=== PATIENT | male | born 1955 | race Caucasian/White ===

== ENCOUNTER 2021-03-24 16:26 | Inpatient (IN) | payer MEDICARE, MEDICAID ==
[~2021-03-24] VITALS: Ht 172.7 cm; Wt 112.5 kg
[2021-03-24] MEDS ORDERED: METFORMIN (16:32)
[2021-03-24] MEDS ORDERED: PIPERACILLIN/TAZ 3.375G PREMIX 50 ML IV ONE (17:15)
[2021-03-24] MEDS ORDERED: DEXAMETHASONE 4MG/ML 1ML VIAL IV ONE (17:15)
[2021-03-24] MEDS ORDERED: VANCOMYCIN 1G PREMIX 200 ML IV ONE (17:15)
[2021-03-24 17:40] LABS: BASOPHILS % 0.2 % (0.0-2.0); EOSINOPHILS % 0.1 % (0.0-5.0); HEMATOCRIT. 47.6 % (42.0-52.0); HEMOGLOBIN. 15.9 g/dL (14.0-18.0); LYMPHOCYTES % 21.2 % (20.0-50.0); MEAN CORPUSCULAR HEMOGLOBIN 31.6 pg (28.0-32.0); MEAN CORPUSCULAR VOLUME 94.8 fL (80.0-94.0); MEAN PLATELET VOLUME 9.2 fl (7.4-10.4); MONOCYTES % 12.8 % (2.0-8.0); NEUTROPHILS % 65.7 % (40.0-76.0); PLATELET 236 x1000/uL (130-400); RED BLOOD CELL COUNT 5.03 mill/uL (4.7-6.1); RED CELL DISTRIBUTION WIDTH 13.7 % (11.6-14.6)
[2021-03-24 17:46] LABS: CHLORIDE 103 mEq/L (98-107)
[2021-03-24 17:48] LABS: INR 1.1; PROTHROMBIN TIME 11.9 sec (9.6-11.0)
[2021-03-24 18:54] LABS: CLARITY URINE CLEAR (CLEAR); COLOR URINE DK YELLOW (YELLOW); KETONES URINE 1+ (NEGATIVE); LEUKOCYTE ESTERASE URINE NEGATIVE (NEGATIVE); NITRITE URINE NEGATIVE (NEGATIVE); OCCULT BLOOD URINE NEGATIVE (NEGATIVE); PROTEIN URINE 1+ (NEGATIVE); SPECIFIC GRAVITY URINE 1.025 (1.005-1.030)
[2021-03-24] MEDS ORDERED: ASPIRIN 81MG TABLET PO NR (19:15)
[2021-03-24] MEDS ORDERED: ACETAMINOPHEN 325MG TABLET PO PRN ×2 (21:30)
[2021-03-24] MEDS ORDERED: CLONIDINE 0.1MG TABLET PO PRN (21:30)
[2021-03-24] MEDS ORDERED: DEXTROSE 50% WATER 50ML SYRINGE IV PRN (21:30)
[2021-03-24] MEDS ORDERED: KETOROLAC 15MG/ML VIAL IV PRN (21:30)
[2021-03-24] MEDS ORDERED: ONDANSETRON HCL 4MG/2ML INJ IV PRN (21:30)
[2021-03-24] MEDS ORDERED: MAGNESIUM/ALUMINUM HYDROXIDE/SIMETHICONE 30ML UDC PO PRN (21:30)
[2021-03-24] MEDS ORDERED: GUAIFENESIN 200MG/10ML SUGAR FREE UDC PO PRN (21:30)
[2021-03-24] MEDS ORDERED: ENOXAPARIN 40MG/0.4ML SYR SUBCUT SCH (21:30)
[2021-03-24] MEDS ORDERED: DOCUSATE SODIUM 100MG CAPSULE PO PRN (21:30)
[2021-03-24] MEDS ORDERED: ZOLPIDEM TARTRATE 5MG TABLET PO PRN (21:30)
[2021-03-24] MEDS ORDERED: NITROGLYCERIN 0.4MG TABLET SL SL PRN (21:30)
[2021-03-24] MEDS ORDERED: AZITHROMYCIN 500MG/250ML 250 ML IV NR (21:45)
[2021-03-24] MEDS: CEFTRIAXONE 1 G PREMIX 50 ML IV SCH (22:08)
[2021-03-24] MEDS: AZITHROMYCIN 500 MG in DEXT 5% WATER 250 ML IV SCH ×2 (22:19→22:26)
[2021-03-24] MEDS: ENOXAPARIN 30MG/0.3ML SYR SUBCUT SCH (22:19)
[2021-03-24 22:24] LABS: FOLIC ACID (FOLATE) SERUM 16.4 ng/mL (>5.38)
[2021-03-24 22:37] LABS: CREATINE KINASE MB FRACTION 1.9 ng/mL (0.5-3.6)
[2021-03-24 23:47] LABS: ETHANOL BLOOD < 10 mg/dL
[2021-03-24 23:49] LABS: TOTAL IRON BINDING CAPACITY 267 ug/dL (250-450)
[2021-03-25] MEDS: DILTIAZEM HCL 60MG TABLET PO SCH ×4 (00:55→18:40)
[2021-03-25] MEDS: BLOOD SUGAR DIAGNOSTIC STRIP TEST SCH ×4 (06:48→21:03)
[2021-03-25 07:01] LABS: CHLORIDE 105 mEq/L (98-107)
[2021-03-25 07:07] LABS: PHOSPHORUS 2.7 mg/dL (2.5-4.9)
[2021-03-25 07:10] LABS: CREATINE KINASE 332 IU/L (39-308)
[2021-03-25 07:14] LABS: CREATINE KINASE MB FRACTION 2.1 ng/mL (0.5-3.6)
[2021-03-25 07:22] LABS: BASOPHILS % 0.2 % (0.0-2.0); HEMATOCRIT. 45.3 % (42.0-52.0); HEMOGLOBIN. 15.8 g/dL (14.0-18.0); LYMPHOCYTES % 17.7 % (20.0-50.0); MEAN CORPUSCULAR VOLUME 94.2 fL (80.0-94.0); MEAN PLATELET VOLUME 9.6 fl (7.4-10.4); MONOCYTES % 10.3 % (2.0-8.0); NEUTROPHILS % 71.8 % (40.0-76.0); PLATELET 247 x1000/uL (130-400); RED CELL DISTRIBUTION WIDTH 13.7 % (11.6-14.6)
[2021-03-25] MEDS ORDERED: DEXAMETHASONE 6MG TABLET PO SCH (09:00)
[2021-03-25] MEDS: ASPIRIN 325MG EC TABLET PO SCH (10:45)
[2021-03-25] MEDS: ZINC SULFATE 220 MG ( 50 ) CAPSULE PO SCH (10:45)
[2021-03-25] MEDS: ENOXAPARIN 30MG/0.3ML SYR SUBCUT SCH ×2 (10:45→20:52)
[2021-03-25] MEDS: FAMOTIDINE 20MG TABLET PO SCH ×2 (10:45→20:51)
[2021-03-25] MEDS: ASCORBIC ACID 500 MG TABLET PO SCH ×2 (10:45→20:51)
[2021-03-25] MEDS: INSULIN LISPRO 100 UNITS/ML SUBCUT SCH ×3 (11:26→21:12)
[2021-03-25] MEDS: DEXAMETHASONE 4MG/ML 1ML VIAL IV SCH (11:40)
[2021-03-25] MEDS: CHOLECALCIFEROL (D3) 1000 UNIT TABLET PO SCH (11:44)
[2021-03-25] MEDS: ALBUTEROL 6.7GM HFA INHALER ORI SCH (15:28)
[2021-03-25] MEDS: CEFTRIAXONE 1 G PREMIX 50 ML IV SCH (21:59)
[2021-03-25] MEDS ORDERED: AZITHROMYCIN 500MG/250ML 250 ML IV NR (22:45)
[2021-03-26 00:26] VITALS: BP 122/62
[2021-03-26 00:34] VITALS: BP 122/62
[2021-03-26] MEDS: DILTIAZEM HCL 60MG TABLET PO SCH ×4 (00:46→18:48)
[2021-03-26] MEDS: ALBUTEROL 6.7GM HFA INHALER ORI SCH ×4 (02:20→20:55)
[2021-03-26 04:00] VITALS: BP 123/65
[2021-03-26] MEDS ORDERED: CRES10 MT (05:24)
[2021-03-26] MEDS ORDERED: METF-415 PO (05:24)
[2021-03-26] MEDS: BLOOD SUGAR DIAGNOSTIC STRIP TEST SCH ×4 (07:23→20:54)
[2021-03-26 08:00] VITALS: BP 106/65
[2021-03-26 08:06] LABS: *AMPHETAMINES SCREEN URINE NEGATIVE (NEGATIVE); *BARBITURATES SCREEN URINE NEGATIVE (NEGATIVE); *BENZODIAZEPINES SCREEN URINE NEGATIVE (NEGATIVE); *COCAINE SCREEN URINE NEGATIVE (NEGATIVE)
[2021-03-26 08:07] LABS: CANNABINOID URINE SCREEN NEGATIVE (NEGATIVE); METHADONE URINE SCREEN NEGATIVE (NEGATIVE); OPIATES URINE SCREEN NEGATIVE (NEGATIVE); PHENCYCLIDINE URINE SCREEN NEGATIVE (NEGATIVE)
[2021-03-26] MEDS: DEXAMETHASONE 4MG/ML 1ML VIAL IV SCH (08:28)
[2021-03-26] MEDS: ZINC SULFATE 220 MG ( 50 ) CAPSULE PO SCH (08:28)
[2021-03-26] MEDS: ASPIRIN 325MG EC TABLET PO SCH (08:29)
[2021-03-26] MEDS: ALBUTEROL 6.7GM HFA INHALER ORI PRN (08:29)
[2021-03-26] MEDS: FAMOTIDINE 20MG TABLET PO SCH ×2 (08:29→20:54)
[2021-03-26] MEDS: ENOXAPARIN 30MG/0.3ML SYR SUBCUT SCH ×2 (08:29→20:54)
[2021-03-26] MEDS: CHOLECALCIFEROL (D3) 1000 UNIT TABLET PO SCH (08:29)
[2021-03-26] MEDS: ASCORBIC ACID 500 MG TABLET PO SCH ×2 (08:29→20:54)
[2021-03-26] MEDS: INSULIN LISPRO 100 UNITS/ML SUBCUT SCH ×4 (08:31→20:54)
[2021-03-26 12:00] VITALS: BP 121/72
[2021-03-26 20:00] VITALS: BP 130/77
[2021-03-26] MEDS: CEFTRIAXONE 1,000 MG in DEXTROSE 5% WATER 50 ML IV SCH (20:53)
[2021-03-26] MEDS: AZITHROMYCIN 500MG in DEXTROSE 5% WATER 250ML IV SCH (22:05)
[2021-03-27] VITALS: BP 111/60
[2021-03-27] MEDS: DILTIAZEM HCL 60MG TABLET PO SCH ×5 (00:22→23:57)
[2021-03-27] MEDS: ALBUTEROL 6.7GM HFA INHALER ORI SCH ×4 (03:00→20:54)
[2021-03-27 04:00] VITALS: BP 115/63
[2021-03-27] MEDS: BLOOD SUGAR DIAGNOSTIC STRIP TEST SCH ×4 (07:25→20:54)
[2021-03-27 08:00] VITALS: BP 116/65
[2021-03-27] MEDS: ASCORBIC ACID 500 MG TABLET PO SCH ×2 (09:33→20:54)
[2021-03-27] MEDS: ENOXAPARIN 30MG/0.3ML SYR SUBCUT SCH ×2 (09:33→20:53)
[2021-03-27] MEDS: ASPIRIN 325MG EC TABLET PO SCH (09:33)
[2021-03-27] MEDS: ZINC SULFATE 220 MG ( 50 ) CAPSULE PO SCH (09:34)
[2021-03-27] MEDS: CHOLECALCIFEROL (D3) 1000 UNIT TABLET PO SCH (09:34)
[2021-03-27] MEDS: FAMOTIDINE 20MG TABLET PO SCH ×2 (09:34→20:54)
[2021-03-27] MEDS: DEXAMETHASONE 4MG/ML 1ML VIAL IV SCH (09:34)
[2021-03-27] MEDS: INSULIN LISPRO 100 UNITS/ML SUBCUT SCH ×4 (09:36→20:53)
[2021-03-27 12:00] VITALS: BP 127/78
[2021-03-27] MEDS: ALBUTEROL 6.7GM HFA INHALER ORI PRN (14:02)
[2021-03-27 20:00] VITALS: BP 133/82
[2021-03-27] MEDS: CEFTRIAXONE 1,000 MG in DEXTROSE 5% WATER 50 ML IV SCH (20:06)
[2021-03-27] MEDS: GUAIFENESIN-DM 200MG-20MG/10ML UDC PO PRN (20:54)
[2021-03-27] MEDS: AZITHROMYCIN 500MG in DEXTROSE 5% WATER 250ML IV SCH (21:27)
[2021-03-28] VITALS: BP 141/80
[2021-03-28] MEDS: ALBUTEROL 6.7GM HFA INHALER ORI SCH ×4 (03:00→21:16)
[2021-03-28 04:00] VITALS: BP 143/78
[2021-03-28] MEDS: DILTIAZEM HCL 60MG TABLET PO SCH ×3 (05:41→17:59)
[2021-03-28] MEDS: BLOOD SUGAR DIAGNOSTIC STRIP TEST SCH ×4 (07:40→20:28)
[2021-03-28 08:00] VITALS: BP_SYST 112; BP_SYST 120; BP_DIAS 67; BP_DIAS 72
[2021-03-28] MEDS: CHOLECALCIFEROL (D3) 1000 UNIT TABLET PO SCH (09:00)
[2021-03-28] MEDS: DEXAMETHASONE 4MG/ML 1ML VIAL IV SCH (09:00)
[2021-03-28] MEDS: FAMOTIDINE 20MG TABLET PO SCH ×2 (09:00→20:27)
[2021-03-28] MEDS: ZINC SULFATE 220 MG ( 50 ) CAPSULE PO SCH (09:00)
[2021-03-28] MEDS: ASCORBIC ACID 500 MG TABLET PO SCH ×2 (09:00→20:27)
[2021-03-28] MEDS: ENOXAPARIN 30MG/0.3ML SYR SUBCUT SCH ×2 (09:00→20:28)
[2021-03-28] MEDS: ASPIRIN 325MG EC TABLET PO SCH (09:01)
[2021-03-28] MEDS: GUAIFENESIN-DM 200MG-20MG/10ML UDC PO PRN ×2 (09:01→20:27)
[2021-03-28] MEDS: INSULIN LISPRO 100 UNITS/ML SUBCUT SCH ×4 (09:02→20:28)
[2021-03-28 12:00] VITALS: BP 120/67
[2021-03-28 16:00] VITALS: BP 118/75
[2021-03-28 20:00] VITALS: BP 115/72
[2021-03-28] MEDS: CEFTRIAXONE 1,000 MG in DEXTROSE 5% WATER 50 ML IV SCH (20:14)
[2021-03-28] MEDS: AZITHROMYCIN 500MG in DEXTROSE 5% WATER 250ML IV SCH (21:17)
[2021-03-29] VITALS: BP 108/73
[2021-03-29] MEDS: ALBUTEROL 6.7GM HFA INHALER ORI SCH ×4 (03:00→20:56)
[2021-03-29 04:00] VITALS: BP 114/74
[2021-03-29] MEDS: DILTIAZEM HCL 60MG TABLET PO SCH ×5 (06:00→23:59)
[2021-03-29] MEDS: BLOOD SUGAR DIAGNOSTIC STRIP TEST SCH ×4 (06:50→20:58)
[2021-03-29] MEDS: INSULIN LISPRO 100 UNITS/ML SUBCUT SCH ×4 (06:50→20:58)
[2021-03-29 08:00] VITALS: BP 142/98
[2021-03-29] MEDS: GUAIFENESIN-DM 200MG-20MG/10ML UDC PO PRN ×2 (08:39→20:56)
[2021-03-29] MEDS: CHOLECALCIFEROL (D3) 1000 UNIT TABLET PO SCH (08:40)
[2021-03-29] MEDS: FAMOTIDINE 20MG TABLET PO SCH ×2 (08:40→20:56)
[2021-03-29] MEDS: ENOXAPARIN 30MG/0.3ML SYR SUBCUT SCH ×2 (08:40→20:57)
[2021-03-29] MEDS: ASCORBIC ACID 500 MG TABLET PO SCH ×2 (08:40→20:56)
[2021-03-29] MEDS: ASPIRIN 325MG EC TABLET PO SCH (08:40)
[2021-03-29] MEDS: ZINC SULFATE 220 MG ( 50 ) CAPSULE PO SCH (08:40)
[2021-03-29] MEDS: DEXAMETHASONE 4MG/ML 1ML VIAL IV SCH (08:42)
[2021-03-29 12:00] VITALS: BP 139/88
[2021-03-29 16:00] VITALS: BP 130/86
[2021-03-29 20:00] VITALS: BP 108/81
[2021-03-30] VITALS: BP 109/84
[2021-03-30] MEDS: ALBUTEROL 6.7GM HFA INHALER ORI SCH ×4 (03:00→20:31)
[2021-03-30 04:00] VITALS: BP 103/63
[2021-03-30] MEDS: DILTIAZEM HCL 60MG TABLET PO SCH ×3 (05:55→17:39)
[2021-03-30] MEDS: BLOOD SUGAR DIAGNOSTIC STRIP TEST SCH ×4 (07:40→20:32)
[2021-03-30 08:00] VITALS: BP 131/87
[2021-03-30] MEDS: ASPIRIN 325MG EC TABLET PO SCH (08:51)
[2021-03-30] MEDS: ASCORBIC ACID 500 MG TABLET PO SCH ×2 (08:51→20:32)
[2021-03-30] MEDS: GUAIFENESIN-DM 200MG-20MG/10ML UDC PO PRN ×3 (08:51→17:39)
[2021-03-30] MEDS: ZINC SULFATE 220 MG ( 50 ) CAPSULE PO SCH (08:51)
[2021-03-30] MEDS: CHOLECALCIFEROL (D3) 1000 UNIT TABLET PO SCH (08:52)
[2021-03-30] MEDS: DEXAMETHASONE 4MG/ML 1ML VIAL IV SCH (08:52)
[2021-03-30] MEDS: FAMOTIDINE 20MG TABLET PO SCH ×2 (08:52→20:32)
[2021-03-30] MEDS: ENOXAPARIN 30MG/0.3ML SYR SUBCUT SCH ×2 (08:53→20:32)
[2021-03-30] MEDS: INSULIN LISPRO 100 UNITS/ML SUBCUT SCH ×4 (08:54→20:32)
[2021-03-30 12:00] VITALS: BP 120/85
[2021-03-30 16:00] VITALS: BP 133/81
[2021-03-30 20:00] VITALS: BP 113/45
[2021-03-30] MEDS: INSULIN GLARGINE UD 100 UNITS/ML SYR SUBCUT SCH (21:27)
[2021-03-31] VITALS: BP 106/55
[2021-03-31] MEDS: ALBUTEROL 6.7GM HFA INHALER ORI SCH ×4 (03:00→20:14)
[2021-03-31 04:00] VITALS: BP 111/61
[2021-03-31] MEDS: DILTIAZEM HCL 60MG TABLET PO SCH ×5 (05:37→23:09)
[2021-03-31] MEDS: BLOOD SUGAR DIAGNOSTIC STRIP TEST SCH ×4 (07:40→20:14)
[2021-03-31 08:00] VITALS: BP 134/87
[2021-03-31] MEDS: FAMOTIDINE 20MG TABLET PO SCH ×2 (09:28→20:13)
[2021-03-31] MEDS: ZINC SULFATE 220 MG ( 50 ) CAPSULE PO SCH (09:28)
[2021-03-31] MEDS: ASCORBIC ACID 500 MG TABLET PO SCH ×2 (09:28→20:13)
[2021-03-31] MEDS: CHOLECALCIFEROL (D3) 1000 UNIT TABLET PO SCH (09:29)
[2021-03-31] MEDS: ENOXAPARIN 30MG/0.3ML SYR SUBCUT SCH ×2 (09:30→20:13)
[2021-03-31] MEDS: INSULIN LISPRO 100 UNITS/ML SUBCUT SCH ×4 (09:31→20:14)
[2021-03-31] MEDS: ALBUTEROL 6.7GM HFA INHALER ORI PRN ×2 (09:32→17:53)
[2021-03-31] MEDS: ASPIRIN 325MG EC TABLET PO SCH (09:35)
[2021-03-31] MEDS: DEXAMETHASONE 4MG/ML 1ML VIAL IV SCH (10:24)
[2021-03-31 12:00] VITALS: BP_SYST 116; BP_SYST 124; BP_DIAS 69; BP_DIAS 72
[2021-03-31 16:00] VITALS: BP 130/80
[2021-03-31 20:00] VITALS: BP 126/88
[2021-03-31] MEDS: INSULIN GLARGINE UD 100 UNITS/ML SYR SUBCUT SCH (23:07)
[2021-04-01] VITALS: BP 132/84
[2021-04-01] MEDS: ALBUTEROL 6.7GM HFA INHALER ORI SCH ×3 (03:24→21:07)
[2021-04-01 04:00] VITALS: BP 145/88
[2021-04-01] MEDS: DILTIAZEM HCL 60MG TABLET PO SCH ×4 (05:51→23:50)
[2021-04-01] MEDS: BLOOD SUGAR DIAGNOSTIC STRIP TEST SCH ×4 (07:45→21:11)
[2021-04-01] MEDS: FAMOTIDINE 20MG TABLET PO SCH ×2 (09:13→21:08)
[2021-04-01] MEDS: CHOLECALCIFEROL (D3) 1000 UNIT TABLET PO SCH (09:13)
[2021-04-01] MEDS: DEXAMETHASONE 4MG/ML 1ML VIAL IV SCH (09:13)
[2021-04-01] MEDS: ASCORBIC ACID 500 MG TABLET PO SCH ×2 (09:13→21:08)
[2021-04-01] MEDS: ASPIRIN 325MG EC TABLET PO SCH (09:14)
[2021-04-01] MEDS: ENOXAPARIN 30MG/0.3ML SYR SUBCUT SCH ×2 (09:14→21:08)
[2021-04-01] MEDS: ZINC SULFATE 220 MG ( 50 ) CAPSULE PO SCH (09:14)
[2021-04-01] MEDS: INSULIN LISPRO 100 UNITS/ML SUBCUT SCH ×5 (09:15→21:11)
[2021-04-01 12:00] VITALS: BP 122/68
[2021-04-01 13:20] LABS: BG BASE EXCESS 3.5 mmol/L (-2.0-2.0); BG CARBOXYHEMOGLOBIN 0.5 % (0.5-1.5); BG DEOXYHEMOGLOBIN 11.3 % (0.0-5.0); BG FRACTION INSPIRED OXYGEN 21; BG HCO3 ACT 27.4 mmol/L (22.0-26.0); BG METHEMOGLOBIN 0.2 % (0.0-1.5); BG OXYGEN SATURATION 88.6 % (92.0-98.5); BG PCO2 38.9 mmHg (35.0-45.0); BG PH 7.465 (7.350-7.450); BG PO2 53.3 mmHg (75.0-100.0); BG SAMPLE SITE LEFT RADIAL; BG TOTAL HEMOGLOBIN 17.6 g/dL (12.0-18.0); BG VENT MODE ROOM AIR
[2021-04-01 16:00] VITALS: BP 128/64
[2021-04-01] MEDS: ALBUTEROL 6.7GM HFA INHALER ORI PRN (19:07)
[2021-04-01 20:00] VITALS: BP 129/73
[2021-04-01] MEDS: INSULIN GLARGINE UD 100 UNITS/ML SYR SUBCUT SCH (22:15)
[2021-04-01 23:58] VITALS: BP 123/77
[2021-04-02] MEDS: ALBUTEROL 6.7GM HFA INHALER ORI SCH ×2 (03:00→09:02)
[2021-04-02 04:00] VITALS: BP 116/79
[2021-04-02] MEDS: DILTIAZEM HCL 60MG TABLET PO SCH ×3 (06:00→17:58)
[2021-04-02] MEDS: BLOOD SUGAR DIAGNOSTIC STRIP TEST SCH ×4 (06:20→20:45)
[2021-04-02] MEDS: INSULIN LISPRO 100 UNITS/ML SUBCUT SCH ×7 (06:22→21:36)
[2021-04-02 08:00] VITALS: BP 139/90
[2021-04-02] MEDS: ZINC SULFATE 220 MG ( 50 ) CAPSULE PO SCH (09:01)
[2021-04-02] MEDS: ASPIRIN 325MG EC TABLET PO SCH (09:01)
[2021-04-02] MEDS: ASCORBIC ACID 500 MG TABLET PO SCH ×2 (09:01→21:35)
[2021-04-02] MEDS: CHOLECALCIFEROL (D3) 1000 UNIT TABLET PO SCH (09:01)
[2021-04-02] MEDS: DEXAMETHASONE 4MG/ML 1ML VIAL IV SCH (09:01)
[2021-04-02] MEDS: FAMOTIDINE 20MG TABLET PO SCH ×2 (09:01→21:35)
[2021-04-02] MEDS: ENOXAPARIN 30MG/0.3ML SYR SUBCUT SCH ×2 (09:01→21:35)
[2021-04-02] MEDS: ALBUTEROL 6.7GM HFA INHALER ORI PRN (09:02)
[2021-04-02 12:00] VITALS: BP 128/64
[2021-04-02 16:00] VITALS: BP 126/77
[2021-04-02 20:00] VITALS: BP 126/86
[2021-04-02] MEDS: INSULIN GLARGINE UD 100 UNITS/ML SYR SUBCUT SCH (22:28)
[2021-04-03] VITALS: BP 118/74
[2021-04-03] MEDS: ALBUTEROL 6.7GM HFA INHALER ORI SCH ×2 (03:00→22:10)
[2021-04-03 04:00] VITALS: BP 112/62
[2021-04-03] MEDS: DILTIAZEM HCL 60MG TABLET PO SCH ×4 (05:01→17:28)
[2021-04-03] MEDS: BLOOD SUGAR DIAGNOSTIC STRIP TEST SCH ×4 (06:12→21:45)
[2021-04-03] MEDS: INSULIN LISPRO 100 UNITS/ML SUBCUT SCH ×7 (06:20→22:08)
[2021-04-03 07:53] LABS: BASOPHILS % 0.2 % (0.0-2.0); HEMATOCRIT. 49.1 % (42.0-52.0); HEMOGLOBIN. 16.5 g/dL (14.0-18.0); MEAN CORPUSCULAR HEMOGLOBIN 32.3 pg (28.0-32.0); MEAN CORPUSCULAR VOLUME 95.8 fL (80.0-94.0); MEAN PLATELET VOLUME 9.9 fl (7.4-10.4); MONOCYTES % 7.7 % (2.0-8.0); NEUTROPHILS % 80.1 % (40.0-76.0); PLATELET 342 x1000/uL (130-400); RED BLOOD CELL COUNT 5.12 mill/uL (4.7-6.1); RED CELL DISTRIBUTION WIDTH 13.5 % (11.6-14.6)
[2021-04-03 08:00] VITALS: BP 148/97
[2021-04-03 08:05] LABS: CHLORIDE 101 mEq/L (98-107)
[2021-04-03] MEDS: ENOXAPARIN 30MG/0.3ML SYR SUBCUT SCH ×2 (08:50→21:48)
[2021-04-03] MEDS: ASPIRIN 325MG EC TABLET PO SCH (08:51)
[2021-04-03] MEDS: ZINC SULFATE 220 MG ( 50 ) CAPSULE PO SCH (08:51)
[2021-04-03] MEDS: ASCORBIC ACID 500 MG TABLET PO SCH ×2 (08:51→21:48)
[2021-04-03] MEDS: CHOLECALCIFEROL (D3) 1000 UNIT TABLET PO SCH (08:51)
[2021-04-03] MEDS: DEXAMETHASONE 4MG/ML 1ML VIAL IV SCH (08:52)
[2021-04-03] MEDS: FAMOTIDINE 20MG TABLET PO SCH ×2 (08:52→21:48)
[2021-04-03 12:00] VITALS: BP 128/84
[2021-04-03 16:15] VITALS: BP 115/72
[2021-04-03 20:00] VITALS: BP 105/73
[2021-04-03] MEDS: INSULIN GLARGINE UD 100 UNITS/ML SYR SUBCUT SCH (22:08)
[2021-04-04] VITALS: BP 115/67
[2021-04-04 04:00] VITALS: BP 107/61
[2021-04-04] MEDS: BLOOD SUGAR DIAGNOSTIC STRIP TEST SCH ×4 (06:18→21:00)
[2021-04-04] MEDS: DILTIAZEM HCL 60MG TABLET PO SCH ×5 (07:07→23:08)
[2021-04-04] MEDS: INSULIN LISPRO 100 UNITS/ML SUBCUT SCH ×7 (07:10→23:00)
[2021-04-04 08:00] VITALS: BP 116/3
[2021-04-04] MEDS: ALBUTEROL 6.7GM HFA INHALER ORI SCH ×3 (09:00→15:48)
[2021-04-04] MEDS: ZINC SULFATE 220 MG ( 50 ) CAPSULE PO SCH (09:06)
[2021-04-04] MEDS: ASCORBIC ACID 500 MG TABLET PO SCH ×2 (09:06→22:50)
[2021-04-04] MEDS: CHOLECALCIFEROL (D3) 1000 UNIT TABLET PO SCH (09:06)
[2021-04-04] MEDS: ASPIRIN 325MG EC TABLET PO SCH (09:06)
[2021-04-04] MEDS: FAMOTIDINE 20MG TABLET PO SCH ×2 (09:06→22:49)
[2021-04-04] MEDS: ENOXAPARIN 30MG/0.3ML SYR SUBCUT SCH ×2 (09:07→22:50)
[2021-04-04] MEDS: DEXAMETHASONE 4MG/ML 1ML VIAL IV SCH (09:07)
[2021-04-04 12:00] VITALS: BP 127/71
[2021-04-04 16:00] VITALS: BP 110/71
[2021-04-04 20:00] VITALS: BP 111/64
[2021-04-04] MEDS: INSULIN GLARGINE UD 100 UNITS/ML SYR SUBCUT SCH (23:01)
[2021-04-05] VITALS: BP 125/86
[2021-04-05 04:00] VITALS: BP 109/79
[2021-04-05] MEDS: BLOOD SUGAR DIAGNOSTIC STRIP TEST SCH ×2 (05:41→11:44)
[2021-04-05] MEDS: DILTIAZEM HCL 60MG TABLET PO SCH ×2 (05:51→11:44)
[2021-04-05] MEDS: INSULIN LISPRO 100 UNITS/ML SUBCUT SCH ×4 (06:46→11:48)
[2021-04-05 08:00] VITALS: BP 103/74
[2021-04-05] MEDS: ZINC SULFATE 220 MG ( 50 ) CAPSULE PO SCH (08:30)
[2021-04-05] MEDS: CHOLECALCIFEROL (D3) 1000 UNIT TABLET PO SCH (08:30)
[2021-04-05] MEDS: ASPIRIN 325MG EC TABLET PO SCH (08:31)
[2021-04-05] MEDS: FAMOTIDINE 20MG TABLET PO SCH (08:31)
[2021-04-05] MEDS: ASCORBIC ACID 500 MG TABLET PO SCH (08:31)
[2021-04-05] MEDS: ENOXAPARIN 30MG/0.3ML SYR SUBCUT SCH (08:32)
[2021-04-05 12:00] VITALS: BP 137/77
[2021-04-05 12:12] VITALS: BP 137/77
== END 2021-04-05 13:48 | disposition home health service (06) | DRG 871 ==
LOC: ER 16:26 → MICUSO 19:50 → EDBEDREQTM 19:52 → EDBEDREQ 19:52 → EDBEDREQSVC 19:52 → SUPCPDRO 21:21 → 7WST 03-26 00:10 → 8WST 04-02 14:39
PROVIDERS: ADMIT Internal Medicine; ATTEND Internal Medicine
DX: A41.89 Other specified sepsis (principal); J12.82 Pneumonia due to coronavirus disease 2019; J96.01 Acute respiratory failure with hypoxia; U07.1 COVID-19; E43 Unspecified severe protein-calorie malnutrition; I13.2 Hypertensive heart and chronic kidney disease with heart failure and with stage 5 chronic kidney disease, or end stage renal disease; N18.5 Chronic kidney disease, stage 5; E66.9 Obesity, unspecified; E78.00 Pure hypercholesterolemia, unspecified; E83.51 Hypocalcemia; J45.909 Unspecified asthma, uncomplicated; R74.01 Elevation of levels of liver transaminase levels; R65.20 Severe sepsis without septic shock; I50.9 Heart failure, unspecified; R94.6 Abnormal results of thyroid function studies; D64.9 Anemia, unspecified; E11.22 Type 2 diabetes mellitus with diabetic chronic kidney disease; F14.10 Cocaine abuse, uncomplicated; Z79.4 Long term (current) use of insulin; Z68.37 Body mass index [BMI] 37.0-37.9, adult
CPT/HCPCS: 36415; 36600; 71045; 80048; 80053; 80305; 80320; 81003; 82375; 82550; 82553; 82607; 82728; 82746; 82805; 82962; 83036; 83540; 83550; 83605; 83735; 83880; 84100; 84145; 84443; 84484; 85025; 86140; 87426; 93005; 93970; 94640; 97162; 97165; 99291; J0456; J0696; J1100; J1650; J1815; J2543; J3370; J7040; J7060; G0480